=== PATIENT | male | born 1990 | race Caucasian/White ===

== ENCOUNTER 2024-05-09 16:30 | Emergency (ER) | payer MEDICAID, OTHER ==
[~2024-05-09] VITALS: Ht 175.3 cm; Wt 81.0 kg
[2024-05-09 16:47] LABS: COVID AG,FIA SOURCE NASAL SWAB
[2024-05-09 17:05] LABS: INFLUENZA TYPE B NEGATIVE FOR TYPE B (NEGATIVE); SARS-COV2 (COVID) ANTIGEN,FIA Negative (Negative)
[2024-05-09 17:15] LABS: INFLUENZA TYPE A POSITIVE FOR TYPE A (NEGATIVE)
[2024-05-09] MEDS: CefTRIAXone SODIUM 500 MG in DEXTROSE 5%-WATER 50 ML IV ONE (18:37)
[2024-05-09] MEDS: SODIUM CHLORIDE 0.9% 1,000 ML IV ONE (18:37)
[2024-05-09] MEDS: HYDROCODONE/ACETAMINOPHEN 5-325 MG TABLET PO ONE (18:38)
[2024-05-09] MEDS: GuaiFENesin/D-METHORPHAN [SUGAR-FREE] 200-20MG/10 ML SYRUP UDCUP PO ONE (18:38)
[2024-05-09] MEDS: KETOROLAC TROMETHAMINE 30 MG/ML VIAL IVP ONE (18:38)
[2024-05-09] MEDS: AZITHROMYCIN 500 MG TABLET PO ONE (18:38)
[2024-05-09] MEDS ORDERED: GUAIFDM PO (18:59)
[2024-05-09] MEDS ORDERED: HYDR-4062 PO (18:59)
[2024-05-09] MEDS ORDERED: IBUP-1554 PO (18:59)
[2024-05-09] MEDS: ACETAMINOPHEN 325 MG TABLET PO ONE (19:02)
[2024-05-09 19:32] VITALS: BP 122/62; PULSE 118; RESP 16; TEMP 100.4; O2SAT 94
== END 2024-05-09 20:21 | disposition home or self-care (01) ==
LOC: EMS 16:30
DX: J06.9 Acute upper respiratory infection, unspecified (principal); R11.0 Nausea; F17.210 Nicotine dependence, cigarettes, uncomplicated; Z20.822 Contact with and (suspected) exposure to COVID-19
CPT/HCPCS: 99284; 96365; 96375; 87426; 87804; J0456; J0696; J1885; J7060; J7030